=== PATIENT | female | born 1960 | race Caucasian/White ===

== ENCOUNTER 2016-06-22 13:25 | Emergency (ER) | payer BC ==
[2016-06-22] MEDS ORDERED: DUONEB 0.5-3 MG/3 ml Neb IH ONE ×2 (14:02→14:16)
[2016-06-22] MEDS ORDERED: solu-MEDROL 125 MG IM ONE (14:02)
[2016-06-22] MEDS ORDERED: solu-MEDROL 125 MG ONE (14:06)
--- NOTE | 2016-06-22 14:08 | ERPHSYRPT ---
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 Patient denies any fever she states she is coughing yellow sputum. Patient states that she is seen several physicians. She is on pro-air inhaler she also has a prescription for doxycycline which was prescribed by another physician. She states that she has been on multiple antibiotics including Levaquin had 2 different doses and doxycycline. She also states that she has been on pro-air inhaler. She also states she had taken some steroids as well. 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 She does state sometimes she'll wake up with the of shortness of breath. She has no chest pain. Past medical history includes allergies, exercise-induced asthma. Patient with a history of trauma in the distant past Past surgical history includes trauma in the past her abdomen, tubal ligation with reversal, thermal ablation. Social history patient states she has not smoked cigarettes for 10 years she rarely uses alcohol. Timing/Duration: week(s) (4 weeks) Cough Quality/Degree: productive cough Possible Cause: frequent episodes Modifying Factors: Improves With: nothing Associated Symptoms: cough, shortness of breath, wheezing, No fever, No chills, No chest pain/soreness, No dizziness, No earache, No facial pain, No headache, No lightheadedness, No muscle aches, No nasal congestion, No nasal drainage, No sinus infection, No sore throat Allergies/Adverse Reactions: No Known Drug Allergies Allergy (Unverified 06/22/16 14:52) Home Medications: Albuterol 2.5 mg/3 ml Neb [Proventil 2.5 mg/3 ml Neb] 2.5 mg IH UD [History] Phentermine HCl [Adipex-P] 37.5 mg PO UD 06/22/16 [History] Hx Tetanus, Diphtheria Vaccination/Date Given: No Hx Influenza Vaccination/Date Given: No Hx Pneumococcal Vaccination/Date Given: No Immunizations Up to Date: Yes - Review of Systems Constitutional: No Fever, No Chills Eyes: No Symptoms Ears, Nose, & Throat: No Symptoms, No Ear Pain, No Ear Discharge, No Hearing Changes, No Tinnitus, No Nose Pain, No Nose Congestion, No Nose Discharge, No Sinus Drainage, No Epistaxis, No Mouth Pain, No Mouth Swelling, No Loose Teeth, No Throat Swelling, No Hoarse, No Painful Swallowing, No Stridor Respiratory: Cough, Dyspnea, Wheezing, No Cyanosis, No Dyspnea on Exertion (HERNANDEZ) Cardiac: No Chest Pain, No Edema, No Syncope Abdominal/Gastrointestinal: No Abdominal Pain, No Nausea, No Vomiting, No Diarrhea Genitourinary Symptoms: No Dysuria Musculoskeletal: No Back Pain, No Neck Pain Skin: No Rash Neurological: No Dizziness, No Focal Weakness, No Sensory Changes Psychological: No Symptoms Endocrine: No Symptoms All Other Systems: Reviewed and Negative - Past Medical History Pertinent Past Medical History: Yes Respiratory History: Asthma Endocrine Medical History: Hypoglycemia - Past Surgical History Past Surgical History: Yes Female Surgical History: Other Other Surgical History: TRAUMA SURGERY - Social History Smoking Status: Never smoker Exposure to second hand smoke: No Drug Use: none Patient Lives Alone: No - Nursing Vital Signs Nursing Vital Signs: Initial Vital Signs Temperature 97.7 F Temperature Source Oral Pulse Rate 107 Respiratory Rate 24 Blood Pressure [] 157/86 Pain Intensity 0 - Physical Exam General Appearance: no apparent distress, alert Eye Exam: PERRL/EOMI, eyes nml inspection Ears, Nose, Throat Exam: normal ENT inspection, TMs normal, pharynx normal, moist mucous membranes Neck Exam: normal inspection, non-tender, supple, full range of motion Respiratory Exam: airway intact, diminished breath sounds, wheezing, No respiratory distress Cardiovascular Exam: regular rate/rhythm, normal heart sounds Gastrointestinal/Abdomen Exam: soft, No tenderness Back Exam: normal inspection, No CVA tenderness, No vertebral tenderness Extremity Exam: normal inspection, normal range of motion Neurologic Exam: alert, oriented x 3, cooperative, normal mood/affect, sensation nml, No motor deficits Skin Exam: normal color, warm, dry, No rash SpO2 Interpretation: normal (97%) SpO2: 97 Oxygen Delivery: Room Air - Course Nursing assessment & vital signs reviewed: Yes - Radiology Exams Chest X-ray Interpretation: Discussed w/ radiologist (chest x-ray: Stable nonacute chest with chronic features) Ordered Tests: Active Orders 24 hr Category Date Time Status CHEST 1 VIEW (PORTABLE) Stat Exams 06/22/16 14:02 Completed Respiratory Nebulizer STAT RT 06/22/16 14:02 Completed Medication Summary Discontinued Medications Generic Name Dose Route Start Last Admin Trade Name Freq PRN Reason Stop Dose Admin Albuterol/Ipratropium 3 ml 06/22/16 14:02 06/22/16 14:17 Duoneb 0.5-3 Mg/3 Ml Neb IH 06/22/16 14:03 3 ml STAT ONE Administration Albuterol/Ipratropium Confirm 06/22/16 14:16 Duoneb 0.5-3 Mg/3 Ml Neb Administered 06/22/16 14:17 Dose 3 ml IH .STK-MED ONE Methylprednisolone Sodium Succinate 125 mg 06/22/16 14:02 06/22/16 14:07 Solu-Medrol 125 Mg IM 06/22/16 14:03 125 mg STAT ONE Administration Methylprednisolone Sodium Succinate Confirm 06/22/16 14:06 Solu-Medrol 125 Mg Administered 06/22/16 14:07 Dose 125 mg .ROUTE .STK-MED ONE - Progress Progress: improved Air Movement: fair Progress Note: 06/22/16 15:12 This is a 56-year-old white female who arrives with complaints of frequent cough which has been essentially persistent which has been going since the beginning of this year. Patient has a cough productive of yellow sputum she's been on multiple antibiotics she is having wheezing. 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 She has been seen by multiple of local physicians secondary to this she states she has an appointment with an bleach mixer when she cannot get in to see until 30 June. Patient states that she got back to work and feels like her cough became worse when being exposed to her dust. Patient does not smoke. She does have a history of exercise-induced asthma in the past on physical examination patient has bilateral wheezes. Chest x-ray shows chronic changes no acute disease processes noted. Patient has been given a DuoNeb treatment with some improvement she has also been given Solu-Medrol 125 mg IM. Will plan to discharge patient with Medrol Dosepak. Patient has doxycycline which she is obtained from another physician she is to continue this. Patient also has a pro-air inhaler she is to take 2 puffs every 4-6 hours as needed. Patient is to have plenty of fluids. Will give her off work tomorrow and today. I have recommended that she follow-up either with her company or her personal physician. . - Departure Time of Disposition: 15:15 Departure Disposition: Home Clinical Impression: Asthma with exacerbation Qualifiers: Asthma severity: moderate persistent Qualified Code(s): J45.41 - Moderate persistent asthma with (acute) exacerbation Condition: Fair Critical Care Time: No Referrals: CASSIDY WALSH [Primary Care Provider] - Additional Instructions: Return home. Plenty of fluids. Continue Pro air inhaler 2 puffs every 4-6 hours as needed. Continue doxycycline as prescribed by her previous physician. Medrol Dosepak. Follow-up with your company her personal physician. Return for acute distress or for severe symptoms
--- NOTE | 2016-06-22 14:31 | XRAY ---
Indication: Cough and chest tightness. Comparison: February 13, 2014 Portable chest again demonstrates bilateral breast implants and chronic left hemidiaphragmatic elevation. No focal infiltrate, consolidation, or large effusion. Heart is not enlarged. Bony thorax intact again with mild scoliosis. Impression: Stable nonacute chest with chronic features.
[2016-06-22] MEDS ORDERED: PROVENTIL 2.5 MG/3 ML NEB IH ONE ×2 (15:28→15:35)
[2016-06-22 15:38] VITALS: BP 172/89; O2SAT 93
[2016-06-22 15:44] VITALS: PULSE 110
== END 2016-06-22 16:21 | disposition home or self-care (01) ==
LOC: ED 13:25
DX: J45.41 Moderate persistent asthma with (acute) exacerbation (principal)
CPT/HCPCS: 71010; 94640; 96372; 99283; J2930

== ENCOUNTER 2020-01-27 09:40 | Emergency (ER) | payer BC ==
[2020-01-27] MEDS ORDERED: BABY ASPIRIN 81 MG CHEW PO ONE (09:56)
--- NOTE | 2020-01-27 09:56 | ERPHSYRPT ---
- History of Present Illness Time Seen by Provider: 01/27/20 09:50 Historian: patient, EMS Exam Limitations: no limitations Patient Subjective Stated Complaint: pt to ER with complaints of chest pain this morning around 30 mins ago. relieved with tums and diet coke. pt states she has hx of GERD. Triage Nursing Assessment: pt A&Ox4. pt ambulatory. pt denies any pain at this time. Physician History: A 59-year-old morbidly obese white female has a history of hypertension, gastroesophageal reflux disease, COPD on steroids, and hypothyroidism and presents with substernal and epigastric pain that radiates to her bilateral upper quadrants and towards her back. She has had several episodes of this in the past. However, this time there was associated lightheadedness and a "feeling as of then a pass out". Patient called EMS service. Patient took 2 Tums and some Diet Coke and patient's symptoms resolved by the time EMS had transported her to the emergency department. Upon arrival to the emergency department patient is pain-free. Patient denies shortness of breath and denies fever. She also denies abdominal pain. Patient has no known primary cardiac disease. Timing/Duration: today Activities at Onset: none Quality: burning, sharpness Location: substernal, epigastric Chest Pain Radiation: back, abdomen (Bilateral upper quadrants) Severity of Pain-Max: moderate Severity of Pain-Current: none Modifying Factors: Improves With: antacids, other (Diet Coke consumption) Associated Symptoms: other Prior Chest Pain/Cardiac Workup: no prior cardiac workup Nitro Today/Relief: no nitro taken today Aspirin Treatment Today: no aspirin today Allergies/Adverse Reactions: No Known Drug Allergies Allergy (Unverified 06/22/16 14:52) Home Medications: Albuterol Sulfate Mdi [Proair Hfa MDI] 90 mcg PO DAILY 01/27/20 [History] Alendronate Sodium 70 mg PO DAILY 01/27/20 [History] Carvedilol 12.5 mg [Coreg 12.5 mg] 12.5 mg PO DAILY 01/27/20 [History] Fluticasone/Vilanterol [Breo Ellipta 100-25 Mcg INH] 1 inhaler PO DAILY 01/27/20 [History] Furosemide 20 mg [Lasix 20 mg] 20 mg PO DAILY 01/27/20 [History] Levothyroxine Sodium [Unithroid] 125 mcg PO DAILY 01/27/20 [History] Lisinopril 20 mg [Zestril 20 MG] 20 mg PO DAILY 01/27/20 [History] Metformin HCl 500 mg PO DAILY 01/27/20 [History] Pravastatin Sodium 20 mg PO DAILY 01/27/20 [History] Prednisone 10 mg [Deltasone 10 mg] 10 mg PO DAILY 01/27/20 [History] levoFLOXacin [Levofloxacin] 500 mg PO DAILY 01/27/20 [History] Hx Tetanus, Diphtheria Vaccination/Date Given: Yes Hx Influenza Vaccination/Date Given: No Hx Pneumococcal Vaccination/Date Given: No Immunizations Up to Date: Yes Travel Risk - International Travel Have you traveled outside of the country in past 3 weeks: No - Coronavirus Screening Are you exhibiting any of the following symptoms?: No Close contact with a COVID-19 positive Pt in past 14-21 Days: No - Review of Systems Constitutional: No Symptoms Eyes: No Symptoms Ears, Nose, & Throat: No Symptoms Respiratory: No Symptoms Cardiac: Chest Pain Abdominal/Gastrointestinal: No Symptoms Genitourinary Symptoms: No Symptoms Musculoskeletal: No Symptoms Skin: No Symptoms Neurological: No Symptoms Psychological: No Symptoms Endocrine: No Symptoms Hematologic/Lymphatic: No Symptoms Immunological/Allergic: No Symptoms All Other Systems: Reviewed and Negative - Past Medical History Pertinent Past Medical History: Yes Neurological History: No Pertinent History ENT History: No Pertinent History Cardiac History: Hypertension Respiratory History: Asthma, COPD Endocrine Medical History: Hypoglycemia Musculoskeletal History: No Pertinent History GI Medical History: GERD History: No Pertinent History Psycho-Social History: No Pertinent History Female Reproductive Disorders: No Pertinent History - Past Surgical History Past Surgical History: Yes Neuro Surgical History: No Pertinent History Cardiac: No Pertinent History Respiratory: No Pertinent History Gastrointestinal: No Pertinent History Genitourinary: No Pertinent History Musculoskeletal: No Pertinent History Female Surgical History: Other Other Surgical History: TRAUMA SURGERY - Social History Smoking Status: Never smoker Exposure to second hand smoke: No Drug Use: none Patient Lives Alone: No - Female History Hx Now: No - Nursing Vital Signs Nursing Vital Signs: Initial Vital Signs Temperature 98.2 F 01/27/20 09:45 Pulse Rate 76 01/27/20 09:45 Respiratory Rate 18 01/27/20 09:45 Blood Pressure 157/89 01/27/20 09:45 O2 Sat by Pulse Oximetry 99 01/27/20 09:45 Pain Scale Pain Intensity 0 - Physical Exam General Appearance: no apparent distress, alert, anxiety, obese Eye Exam: PERRL/EOMI, eyes nml inspection Ears, Nose, Throat Exam: normal ENT inspection, moist mucous membranes Neck Exam: normal inspection, non-tender, supple, full range of motion Respiratory Exam: normal breath sounds, lungs clear, airway intact, No chest tenderness, No respiratory distress Cardiovascular Exam: regular rate/rhythm, normal heart sounds, normal peripheral pulses Gastrointestinal/Abdomen Exam: soft, normal bowel sounds, No tenderness Pelvic Exam: not done Rectal Exam: not done Back Exam: normal inspection, normal range of motion, No CVA tenderness, No vertebral tenderness Extremity Exam: normal inspection, normal range of motion, pelvis stable Neurologic Exam: alert, oriented x 3, cooperative, biomedical manager II-XII nml as tested, nor mal mood/affect, nml cerebellar function, nml station & gait, sensation nml Skin Exam: normal color, warm, dry Lymphatic Exam: No adenopathy SpO2 Interpretation: normal SpO2: 99 O2 Delivery: Room Air - Course Nursing assessment & vital signs reviewed: Yes EKG Interpreted by Me: RATE (72), Sinus Rhythm, Left [place] Deviation, NORMAL INTERVALS, NORMAL QRS, Other (No comparison EKG available) Ordered Tests: Active Orders 24 hr Category Date Time Status Bending Shed Worker STAT Care 01/27/20 09:57 Active EKG-ER Only STAT Care 01/27/20 09:56 Active IV Insertion STAT Care 01/27/20 09:56 Active Pulse Oximetry (ED) STAT Care 01/27/20 09:56 Active CHEST 1 VIEW (PORTABLE) Stat Exams 01/27/20 09:56 Completed CBC W DIFF Stat Lab 01/27/20 10:08 Completed CMP Stat Lab 01/27/20 10:08 Completed D-DIMER QUANTITATIVE Stat Lab 01/27/20 10:08 Completed Manual Differential NC Stat Lab 01/27/20 10:08 Completed NT PRO BNP Stat Lab 01/27/20 10:08 Completed PROTIME WITH INR Stat Lab 01/27/20 10:08 Completed TROPONIN Q3H Lab 01/27/20 10:08 Completed TROPONIN Q3H Lab 01/27/20 13:00 Ordered TROPONIN Q3H Lab 01/27/20 16:00 Ordered TROPONIN Q3H Lab 01/27/20 19:00 Ordered TROPONIN Q3H Lab 01/27/20 22:00 Ordered Medication Summary Generic Name Dose Route Start Last Admin Trade Name Carlos PRN Reason Stop Dose Admin Ceftriaxone Sodium/Dextrose 1 g in 50 mls @ 100 mls/hr 01/27/20 11:28 Rocephin 1 Gm-D5w 50 Ml Bag IV 01/27/20 11:57 STAT STA Discontinued Medications Generic Name Dose Route Start Last Admin Trade Name Carlos PRN Reason Stop Dose Admin Aspirin 324 mg 01/27/20 09:56 01/27/20 10:10 Baby Aspirin 81 Mg Chew PO 01/27/20 09:57 324 mg STAT ONE Administration Lab/Rad Data: Laboratory Result Diagrams 01/27/20 10:08 01/27/20 10:08 Laboratory Results 01/27/20 01/27/20 01/27/20 Range/Units 10:08 10:08 10:08 WBC (4.0-10.5) K/mm3 RBC (4.1-5.4) M/mm3 Hgb (12.0-16.0) gm/dl Hct (35-47) % MCV (78-100) fl MCH (26-32) pg MCHC (32-36) g/dl RDW (11.5-14.0) % Plt Count (150-450) K/mm3 MPV (7.5-11.0) fl Segmented Neutrophils (36.0-66.0) % Lymphocytes (Manual) (24-44) % Monocytes (Manual) (0.0-12.0) % Eosinophils (Manual) (0.00-3.0) % Platelet Estimate (NORMAL) RBC Morphology PT 11.3 (9.95-12.35) SECONDS INR 1.00 (0.8-3.0) D-Dimer < 215 L (215-500) ng/mL Sodium 134 L (137-145) mmol/L Potassium 3.6 (3.5-5.1) mmol/L Chloride 98 (98-107) mmol/L Carbon Dioxide 29 (22-30) mmol/L Anion Gap 9.9 (5-15) MEQ/L BUN 22 H (7-17) mg/dL Creatinine 0.90 (0.52-1.04) mg/dL Estimated GFR > 60.0 ML/MIN Glucose 101 (74-106) mg/dL Calcium 9.9 (8.4-10.2) mg/dL Total Bilirubin 0.60 (0.2-1.3) mg/dL AST 36 (14-36) U/L ALT 48 H (0-35) U/L Alkaline Phosphatase 62 (38-126) U/L Troponin I < 0.012 (0.000-0.034) ng/mL NT-Pro-B Natriuret Pep 42.7 (0-900) pg/mL Serum Total Protein 6.5 (6.3-8.2) g/dL Albumin 3.9 (3.5-5.0) g/dL 01/27/20 Range/Units 10:08 WBC 17.1 H (4.0-10.5) K/mm3 RBC 4.72 (4.1-5.4) M/mm3 Hgb 14.4 (12.0-16.0) gm/dl Hct 44.3 (35-47) % MCV 93.9 (78-100) fl MCH 30.5 (26-32) pg MCHC 32.5 (32-36) g/dl RDW 14.9 H (11.5-14.0) % Plt Count 309 (150-450) K/mm3 MPV 8.8 (7.5-11.0) fl Segmented Neutrophils 54 (36.0-66.0) % Lymphocytes (Manual) 34 (24-44) % Monocytes (Manual) 10 (0.0-12.0) % Eosinophils (Manual) 2 (0.00-3.0) % Platelet Estimate NORMAL (NORMAL) RBC Morphology NORMAL PT (9.95-12.35) SECONDS INR (0.8-3.0) D-Dimer (215-500) ng/mL Sodium (137-145) mmol/L Potassium (3.5-5.1) mmol/L Chloride (98-107) mmol/L Carbon Dioxide (22-30) mmol/L Anion Gap (5-15) MEQ/L BUN (7-17) mg/dL Creatinine (0.52-1.04) mg/dL Estimated GFR ML/MIN Glucose (74-106) mg/dL Calcium (8.4-10.2) mg/dL Total Bilirubin (0.2-1.3) mg/dL AST (14-36) U/L ALT (0-35) U/L Alkaline Phosphatase (38-126) U/L Troponin I (0.000-0.034) ng/mL NT-Pro-B Natriuret Pep (0-900) pg/mL Serum Total Protein (6.3-8.2) g/dL Albumin (3.5-5.0) g/dL - Progress Progress: improved, re-examined Air Movement: good Progress Note: 01/27/20 11:26 Chest x-ray reveals a new right middle lobe atelectasis versus infiltrate. 01/27/20 11:34 Medical decision making: This patient is on Levaquin and a tapering dose of steroids. Her white count that is elevated may be caused by the infiltrate, if it is present, the fact that she is on steroids, or combination of both. The patient has been on a Z-Mike approximately 1 week ago. And then started on Levaquin. Patient states she is allergic to penicillin and Suprax. However, the Suprax caused diarrhea and not a true allergic reaction. I will give her a single dose of Rocephin. She is to continue her Levaquin. I will also write her a prescription for Diflucan 2 pills 1 a day for 2 days since she has been taking antibiotics for the last 14 days. Blood Culture(s) Obtained: No Antibiotics given: No Counseled pt/family regarding: lab results, diagnosis, need for follow-up, rad results - Departure Departure Disposition: Home Clinical Impression: Infiltrate of right lung present on chest x-ray Condition: Stable Critical Care Time: No Referrals: CASSIDY WALSH [NON-STAFF PHY W/O PRIVILEGES] - Additional Instructions: Take your medications as prescribed. Follow-up with your primary care physician for further management of the infiltrate on your chest x-ray. Prescriptions: Fluconazole 100 mg [Diflucan 100 MG] 100 mg PO DAILY #2 tablet
[2020-01-27 10:14] LABS: Hematocrit 44.3 % (35-47); Hemoglobin 14.4 gm/dl (12.0-16.0); Mean Cell Volume 93.9 fl (78-100); Mean Corpuscular Hemoglobin 30.5 pg (26-32); Mean Corpuscular Hgb Concent. 32.5 g/dl (32-36); Mean Platelet Volume 8.8 fl (7.5-11.0); Platelet Count 309 K/mm3 (150-450); Red Blood Count 4.72 M/mm3 (4.1-5.4); Red Cell Distribution Width 14.9 % (11.5-14.0); White Blood Count 17.1 K/mm3 (4.0-10.5)
[2020-01-27 10:23] LABS: PROTIME 11.3 SECONDS (9.95-12.35)
--- NOTE | 2020-01-27 10:32 | XRAY ---
Indication: Chest pain. Comparison: 2014. Portable chest demonstrates new right middle lobe infiltrate/atelectasis. Remaining heart and lungs unremarkable with chronic left hemidiaphragm elevation. Bony thorax intact again with minimal degenerative changes, mild scoliosis, and old left rib fractures.
[2020-01-27 10:42] LABS: Eosinophil 2 % (0.00-3.0); Lymphocytes 34 % (24-44); Monocyte 10 % (0.0-12.0); Neutrophils 54 % (36.0-66.0); Platelet Estimate NORMAL (NORMAL); Total Cells Counted 100
[2020-01-27 10:43] LABS: D-DIMER QUANTITATIVE < 215 ng/mL (215-500)
[2020-01-27 10:58] LABS: ALBUMIN 3.9 g/dL (3.5-5.0); ALKALINE PHOSPHATASE 62 U/L (38-126); ANION GAP 9.9 MEQ/L (5-15); BLOOD UREA NITROGEN 22 mg/dL (7-17); CHLORIDE 98 mmol/L (98-107); Calcium 9.9 mg/dL (8.4-10.2); Carbon Dioxide 29 mmol/L (22-30); EST GLOMERULAR FILTRATION RATE > 60.0 ML/MIN; Glucose 101 mg/dL (74-106); NT PRO BNP 42.7 pg/mL (0-900); Potassium 3.6 mmol/L (3.5-5.1); SGOT/AST 36 U/L (14-36); SGPT/ALT 48 U/L (0-35); SODIUM 134 mmol/L (137-145); Total Protein 6.5 g/dL (6.3-8.2)
[2020-01-27] MEDS ORDERED: ROCEPHIN 1 Gm-D5w 50 ml Bag** 1 G/50 ML IVPB IV STA (11:28)
[2020-01-27] MEDS ORDERED: ROCEPHIN 1 Gm-D5w 50 ml Bag** 1 G/50 ML IVPB IV ONE (11:34)
[2020-01-27 12:07] VITALS: BP 170/95; PULSE 70; O2SAT 98
== END 2020-01-27 12:23 | disposition home or self-care (01) ==
LOC: ED 09:40
DX: R91.8 Other nonspecific abnormal finding of lung field (principal)
CPT/HCPCS: 36000; 36415; 71045; 80053; 83880; 84484; 85025; 85379; 85610; 93005; 93041; 94760; 96365; 96374; 99284; J0696; A9270-GY

== ENCOUNTER 2022-06-14 12:48 | Emergency (ER) | payer BC ==
--- NOTE | 2022-06-14 12:51 | ERPHSYRPT ---
- History of Present Illness Time Seen by Provider: 06/14/22 12:51 Source: patient Exam Limitations: no limitations Physician History: This is a 62-year-old obese white female patient of Dr. Whiting and has had intermittent bilateral flank pain that radiated around anteriorly to her bilateral upper quadrants. She was at work today when the same symptoms came on but was very severe and sharp. Patient has been recently treated with Levaquin, Keflex and Medrol Dosepak in the last few weeks for bronchitis. Patient has a significant history of COPD and asthma as well as hypothyroidism, hypertension, gastroesophageal reflux disease, diabetes and hyperlipidemia. Patient states she has had some mild chest pain with a mild cough. Patient states that the last time she had this type of symptoms she was told that her symptoms may be related to gallbladder disease. Timing/Duration: today Method of Injury: other (No injury) Quality: sharp, stabbing Severity of Pain-Max: moderate Severity of Pain-Current: mild (To moderate) Modifying Factors: Improves With: nothing Associated Symptoms: denies symptoms, lower back pain, No urinary incontinence, No loss of bowel control, No numbness in legs/feet Previous symptoms: same symptoms as today Allergies/Adverse Reactions: Penicillins Allergy (Verified 06/14/22 12:54) trientine [From Cuprid] Adverse Reaction (Verified 06/14/22 12:54) Home Medications: Albuterol Sulfate Mdi [Proair Hfa MDI] 90 mcg PO DAILY 01/27/20 [History] Carvedilol 12.5 mg [Coreg 12.5 mg] 12.5 mg PO DAILY 01/27/20 [History] Furosemide 20 mg [Lasix 20 mg] 20 mg PO DAILY PRN 01/27/20 [History] Levothyroxine Sodium [Unithroid] 150 mcg PO DAILY 01/27/20 [History] Budesonide/Glycopyr/Formoterol [Breztri Aerosphere Inhaler] 1 puff IH DAILY 06/14/22 [History] Losartan Potassium [Cozaar] 25 mg PO DAILY 06/14/22 [History] Hx Tetanus, Diphtheria Vaccination/Date Given: Yes Hx Influenza Vaccination/Date Given: No Hx Pneumococcal Vaccination/Date Given: No Travel Risk - International Travel Have you traveled outside of the country in past 3 weeks: No - Coronavirus Screening Are you exhibiting any of the following symptoms?: No Close contact with a COVID-19 positive Pt in past 14-21 Days: No - Review of Systems Constitutional: No Symptoms Eyes: No Symptoms Ears, Nose, & Throat: No Symptoms Respiratory: No Symptoms Cardiac: No Symptoms Abdominal/Gastrointestinal: No Symptoms Genitourinary Symptoms: No Symptoms Musculoskeletal: Back Pain Skin: No Symptoms Neurological: No Symptoms Psychological: No Symptoms Endocrine: No Symptoms Hematologic/Lymphatic: No Symptoms Immunological/Allergic: No Symptoms All Other Systems: Reviewed and Negative - Past Medical History Pertinent Past Medical History: Yes Neurological History: No Pertinent History ENT History: No Pertinent History Cardiac History: Hypertension Respiratory History: Asthma, COPD Endocrine Medical History: Hypoglycemia Musculoskeletal History: No Pertinent History GI Medical History: GERD History: No Pertinent History Psycho-Social History: No Pertinent History Female Reproductive Disorders: No Pertinent History - Past Surgical History Past Surgical History: Yes Neuro Surgical History: No Pertinent History Cardiac: No Pertinent History Respiratory: No Pertinent History Gastrointestinal: No Pertinent History Genitourinary: No Pertinent History Musculoskeletal: No Pertinent History Female Surgical History: Other Other Surgical History: TRAUMA SURGERY - Social History Smoking Status: Never smoker Exposure to second hand smoke: No Drug Use: none Patient Lives Alone: No - Nursing Vital Signs Nursing Vital Signs: Initial Vital Signs Temperature 98.2 F 06/14/22 12:55 Pulse Rate 62 06/14/22 12:55 Blood Pressure 142/61 06/14/22 12:55 O2 Sat by Pulse Oximetry 96 06/14/22 12:55 Pain Scale Pain Intensity 0 - Physical Exam General Appearance: no apparent distress, alert, anxiety, obese Eye Exam: PERRL/EOMI, eyes nml inspection Ears, Nose, Throat Exam: normal ENT inspection, moist mucous membranes Neck Exam: normal inspection, non-tender, supple, full range of motion Respiratory Exam: normal breath sounds, lungs clear, airway intact, No chest tenderness, No respiratory distress Cardiovascular Exam: regular rate/rhythm, normal heart sounds, normal peripheral pulses Gastrointestinal Exam: soft, normal bowel sounds, No tenderness Pelvic Exam: not done Rectal Exam: not done Back Exam: normal inspection, normal range of motion, CVA tenderness (Mild b ilateral), No vertebral tenderness Extremity Exam: normal inspection, normal range of motion, pelvis stable Neurologic Exam: alert, oriented x 3, cooperative, geotechnician II-XII nml as tested, normal mood/affect, nml cerebellar function, nml station & gait, sensation nml Skin Exam: normal color, warm, dry Lymphatic Exam: No adenopathy SpO2 Interpretation: normal O2 Delivery: Room Air - Course Nursing assessment & vital signs reviewed: Yes Ordered Tests: Active Orders 24 hr Category Date Time Status EKG-ER Only STAT Care 06/14/22 13:38 Active ABDOMEN AND PELVIS W/0 CONTRAS [CT] Stat Exams 06/14/22 13:38 Completed CHEST 1 VIEW (PORTABLE) Stat Exams 06/14/22 13:52 Taken CBC W DIFF Stat Lab 06/14/22 14:06 Completed CMP Stat Lab 06/14/22 14:06 Completed TROPONIN Q4H Lab 06/14/22 14:06 Completed TROPONIN Q4H Lab 06/14/22 17:45 Ordered TROPONIN Q4H Lab 06/14/22 21:45 Ordered UA W/RFX UR CULTURE Stat Lab 06/14/22 14:06 Completed Lab/Rad Data: Laboratory Result Diagrams 06/14/22 14:06 06/14/22 14:06 Laboratory Results 06/14/22 06/14/22 06/14/22 Range/Units 14:29 14:06 14:06 WBC (4.0-10.5) x10^3/uL RBC (4.1-5.4) x10^6/uL Hgb (12.0-16.0) g/dL Hct (35-47) % MCV (78-100) fL MCH (26-32) pg MCHC (32-36) g/dL RDW (11.5-14.0) % Plt Count (150-450) x10^3/uL MPV (7.5-11.0) fL Gran % (36.0-66.0) % Immature Gran % (Auto) (0.00-0.4) % Nucleat RBC Rel Count (0.00-0.1) % Eos # (Auto) (0-0.5) x10^3/uL Immature Gran # (Auto) (0.00-0.03) x10^3u/L Absolute Lymphs (auto) (1.0-4.6) x10^3/uL Absolute Monos (auto) (0.0-1.3) x10^3/uL Absolute Nucleated RBC (0.00-0.01) x10^3u/L Lymphocytes % (24.0-44.0) % Monocytes % (0.0-12.0) % Eosinophils % (0.00-5.0) % Basophils % (0.0-0.4) % Absolute Granulocytes (1.4-6.9) x10^3/uL Basophils # (0-0.4) x10^3/uL Sodium 137 (137-145) mmol/L Potassium 5.2 H (3.5-5.1) mmol/L Chloride 99 (98-107) mmol/L Carbon Dioxide 34 H (22-30) mmol/L Anion Gap 9.7 (5-15) MEQ/L BUN 15 (7-17) mg/dL Creatinine 1.13 H (0.52-1.04) mg/dL Estimated GFR 51.5 ML/MIN Glucose 98 (74-106) mg/dL Calcium 9.2 (8.4-10.2) mg/dL Total Bilirubin 0.60 (0.2-1.3) mg/dL AST 31 (14-36) U/L ALT 36 H (0-35) U/L Alkaline Phosphatase 79 (38-126) U/L Troponin I < 0.012 (0.000-0.034) ng/mL Serum Total Protein 7.1 (6.3-8.2) g/dL Albumin 4.3 (3.5-5.0) g/dL Urine Color (Yellow) Urine Appearance (Clear) Urine pH (4.6-8.0) Ur Specific [place] (1.005-1.030) Urine Protein (Negative) Urine Glucose (UA) (Negative) mg/dL Urine Ketones (Negative) Urine Blood (Negative) Urine Nitrite (Negative) Urine Bilirubin (Negative) Urine Urobilinogen (0.2) mg/dL Ur Leukocyte Esterase (Negative) U Hyaline Cast (Auto) (0-2) /LPF Urine Microscopic RBC (0-5) /HPF Urine Microscopic WBC (0-5) /HPF Ur Epithelial Cells (None Seen) /HPF Urine Bacteria (None Seen) /HPF Urine Culture Reflexed (NO) Influenza Type A Ag NEGATIVE (NEGATIVE) Influenza Type B Ag NEGATIVE (NEGATIVE) RSV (PCR) NEGATIVE (Negative) SARS-CoV-2 (PCR) POSITIVE A (NEGATIVE) 06/14/22 06/14/22 Range/Units 14:06 14:06 WBC 11.3 H (4.0-10.5) x10^3/uL RBC 5.12 (4.1-5.4) x10^6/uL Hgb 15.5 (12.0-16.0) g/dL Hct 47.4 H (35-47) % MCV 92.6 (78-100) fL MCH 30.3 (26-32) pg MCHC 32.7 (32-36) g/dL RDW 13.8 (11.5-14.0) % Plt Count 337 (150-450) x10^3/uL MPV 8.8 (7.5-11.0) fL Gran % 57.6 (36.0-66.0) % Immature Gran % (Auto) 4.9 H (0.00-0.4) % Nucleat RBC Rel Count 0.0 (0.00-0.1) % Eos # (Auto) 0.40 (0-0.5) x10^3/uL Immature Gran # (Auto) 0.56 H (0.00-0.03) x10^3u/L Absolute Lymphs (auto) 2.11 (1.0-4.6) x10^3/uL Absolute Monos (auto) 1.60 H (0.0-1.3) x10^3/uL Absolute Nucleated RBC 0.00 (0.00-0.01) x10^3u/L Lymphocytes % 18.6 L (24.0-44.0) % Monocytes % 14.1 H (0.0-12.0) % Eosinophils % 3.5 (0.00-5.0) % Basophils % 1.3 (0.0-0.4) % Absolute Granulocytes 6.50 (1.4-6.9) x10^3/uL Basophils # 0.15 (0-0.4) x10^3/uL Sodium (137-145) mmol/L Potassium (3.5-5.1) mmol/L Chloride (98-107) mmol/L Carbon Dioxide (22-30) mmol/L Anion Gap (5-15) MEQ/L BUN (7-17) mg/dL Creatinine (0.52-1.04) mg/dL Estimated GFR ML/MIN Glucose (74-106) mg/dL Calcium (8.4-10.2) mg/dL Total Bilirubin (0.2-1.3) mg/dL AST (14-36) U/L ALT (0-35) U/L Alkaline Phosphatase (38-126) U/L Troponin I (0.000-0.034) ng/mL Serum Total Protein (6.3-8.2) g/dL Albumin (3.5-5.0) g/dL Urine Color Yellow (Yellow) Urine Appearance Clear (Clear) Urine pH 5.5 (4.6-8.0) Ur Specific [place] 1.025 (1.005-1.030) Urine Protein Negative (Negative) Urine Glucose (UA) Negative (Negative) mg/dL Urine Ketones Trace A (Negative) Urine Blood Small A (Negative) Urine Nitrite Negative (Negative) Urine Bilirubin Negative (Negative) Urine Urobilinogen 1.0 A (0.2) mg/dL Ur Leukocyte Esterase Negative (Negative) U Hyaline Cast (Auto) 11-25 A (0-2) /LPF Urine Microscopic RBC 3-5 (0-5) /HPF Urine Microscopic WBC 0-2 (0-5) /HPF Ur Epithelial Cells Rare (None Seen) /HPF Urine Bacteria None Seen (None Seen) /HPF Urine Culture Reflexed NO (NO) Influenza Type A Ag (NEGATIVE) Influenza Type B Ag (NEGATIVE) RSV (PCR) (Negative) SARS-CoV-2 (PCR) (NEGATIVE) - Progress Progress Note: 06/14/22 15:58 CT of the abdomen pelvis without contrast shows a 4 mm round, right renal exo phytic mass that may be a complex cyst. Chest x-ray shows no acute cardiopulmonary process. Counseled pt/family regarding: lab results, diagnosis, need for follow-up, rad results - Departure Departure Disposition: Home Clinical Impression: COVID-19 virus infection, Right renal mass Condition: Stable Critical Care Time: No Referrals: DOCTOR,NO FAMILY [NON-STAFF PHY W/O PRIVILEGES] - Follow up/PCP as directed Additional Instructions: Drink plenty of fluids. Quarantine yourself from work per your employer's protocol. Use Tylenol and ibuprofen for pain and fever control. Continue your other medications as prescribed
[2022-06-14 14:48] LABS: Basophil (Absolute #) 0.15 x10^3/uL (0-0.4); Eosinophil % 3.5 % (0.00-5.0); Hematocrit 47.4 % (35-47); Hemoglobin 15.5 g/dL (12.0-16.0); Lymphocyte (Absolute #) 2.11 x10^3/uL (1.0-4.6); Lymphocytes % 18.6 % (24.0-44.0); Mean Cell Volume 92.6 fL (78-100); Mean Corpuscular Hemoglobin 30.3 pg (26-32); Mean Corpuscular Hgb Concent. 32.7 g/dL (32-36); Mean Platelet Volume 8.8 fL (7.5-11.0); Monocytes % 14.1 % (0.0-12.0); Neutrophil % 57.6 % (36.0-66.0); Platelet Count 337 x10^3/uL (150-450); Red Blood Count 5.12 x10^6/uL (4.1-5.4); Red Cell Distribution Width 13.8 % (11.5-14.0); White Blood Count 11.3 x10^3/uL (4.0-10.5)
--- NOTE | 2022-06-14 14:57 | XRAY ---
Indication: Bilateral flank pain. Multiple contiguous axial images obtained through the abdomen and pelvis without contrast using renal stone protocol. Comparison: None Lung bases demonstrates mild bibasilar subsegmental atelectasis/scarring. Heart not enlarged. Partially visualized bilateral breast implants. No renal calculus or evidence for obstructive uropathy in either system. Right mid kidney demonstrates 4 mm round dense exophytic mass, possible complex dense cyst. Noncontrasted stomach and bowel loops appear nonobstructed with normal appendix. Mild scattered colonic diverticulosis without diverticulitis. No free fluid/air. Mild fatty liver. Remaining liver, gallbladder, pancreas, spleen, adrenal glands, kidneys, ureters, bladder, and uterus are unremarkable for noncontrast exam. Mild scattered aortoiliac calcifications without AAA. Osseous structures intact with minimal degenerative changes throughout the spine and mild levoscoliosis centered at L2. No ventral or inguinal hernias. Impression: 1. Negative renal calculus or evidence for obstructive uropathy. 2. 4 mm round right renal exophytic mass, possible complex dense cyst. 3. Colonic diverticulosis, fatty liver, and chronic bony findings. 4. Remaining CT abdomen/pelvis without contrast exam is negative.
[2022-06-14 15:08] LABS: Appearance Clear (Clear); Bacteria None Seen /HPF (None Seen); Bilirubin Negative (Negative); Blood Small (Negative); Epithelial Cells Rare /HPF (None Seen); Glucose, Urine Negative (Negative); Ketones Trace (Negative); Leukocyte Esterase Negative (Negative); Nitrite Negative (Negative); Ph 5.5 (4.6-8.0); Protein,Urine Dip Negative (Negative); Specific Gravity 1.025 (1.005-1.030); WBC 0-2 /HPF (0-5)
[2022-06-14 15:11] LABS: ADD URINE CULTURE? NO (NO)
[2022-06-14 15:14] VITALS: O2SAT 98
[2022-06-14 15:17] LABS: ALBUMIN 4.3 g/dL (3.5-5.0); ANION GAP 9.7 MEQ/L (5-15); BILIRUBIN,TOTAL 0.6 mg/dL (0.2-1.3); Calcium 9.2 mg/dL (8.4-10.2); Creatinine 1 1.13 mg/dL (0.52-1.04); EST GLOMERULAR FILTRATION RATE 51.5 ML/MIN; Potassium 5.2 mmol/L (3.5-5.1); Total Protein 7.1 g/dL (6.3-8.2)
[2022-06-14 15:39] LABS: INFLUENZA A NEGATIVE (NEGATIVE); INFLUENZA B NEGATIVE (NEGATIVE); RESPIRATORY SYNCTIAL VIRUS NEGATIVE (Negative)
[2022-06-14 15:49] LABS: SARS-CoV-2 Xpert Express POSITIVE (NEGATIVE)
[2022-06-14 16:10] VITALS: BP 122/70; PULSE 78
--- NOTE | 2022-06-14 16:33 | XRAY ---
Indication: Cough. Comparison: January 27, 2020 Portable chest unchanged again demonstrating right middle lobe infiltrate/atelectasis and chronic left hemidiaphragm elevation. Remaining heart and upper lungs unremarkable. Bony thorax intact again with mild degenerative changes, scoliosis, and old left rib fractures.
[2022-06-14 19:28] LABS: Slide Review 1 YES
== END 2022-06-14 16:45 | disposition home or self-care (01) ==
LOC: ED 12:48
DX: U07.1 COVID-19 (principal); N28.89 Other specified disorders of kidney and ureter; R10.9 Unspecified abdominal pain; R07.9 Chest pain, unspecified; R05.9 Cough, unspecified; I10 Essential (primary) hypertension; E78.5 Hyperlipidemia, unspecified; E11.9 Type 2 diabetes mellitus without complications; Z79.899 Other long term (current) drug therapy
CPT/HCPCS: 0241U; 36415; 71045; 74176; 80053; 81001; 84484; 85025; 93005; 99284